=== PATIENT | male | born 1950 | race Caucasian/White ===

== ENCOUNTER 2019-05-06 13:28 | Emergency (ER) | payer MEDICARE, OTHER ==
[2019-05-06] MEDS ORDERED: Acetaminophen 500 MG TAB ONE (13:45)
--- NOTE | 2019-05-06 14:00 | RAD ---
LEFT FOOT 3 VIEWS: D ate: 05/06/19 HISTORY: Fall. Left foot pain. FINDINGS/IMPRESSION: No acute fracture or dislocation seen. Posterior and plantar calcaneal spurs are present. POS: [facility]
== END 2019-05-06 14:06 | disposition home or self-care (01) ==
LOC: MADERS 13:28
DX: S90.32XA Contusion of left foot, initial encounter (principal); E11.9 Type 2 diabetes mellitus without complications; E78.5 Hyperlipidemia, unspecified; E78.2 Mixed hyperlipidemia; I10 Essential (primary) hypertension; J45.909 Unspecified asthma, uncomplicated; F17.210 Nicotine dependence, cigarettes, uncomplicated; M10.9 Gout, unspecified; Z79.899 Other long term (current) drug therapy; W22.8XXA Striking against or struck by other objects, initial encounter
CPT/HCPCS: 99406

== ENCOUNTER 2019-12-10 08:42 | Outpatient (CLI) | payer MEDICARE, OTHER ==
[2019-12-10 09:24] LABS: ALT (SGPT) 24 U/L (8-55); AST (SGOT) 16 U/L (5-34); Albumin 4.3 g/dL (3.4-4.8); Alkaline Phosphatase 81 U/L (40-110); Anion Gap 15 mmol/L (10-20); BUN (Urea Nitrogen) 16 mg/dL (8.4-25.7); Bilirubin, Total 0.6 mg/dL (0.2-1.2); Calc. Creatinine Clearance 0 mL/min (70-130); Calcium 9.6 mg/dL (7.8-10.44); Carbon Dioxide 23 mmol/L (23-31); Cardiac Risk 4.3 (Less than 4.5); Chloride 106 mmol/L (98-107); Cholesterol 117 mg/dl (< 200 Desired); Estimated GFR-MDRD 64; Globulin 2.6 g/dL (2.4-3.5); Glucose 151 mg/dL (80-115); HDL Cholesterol 27 mg/dL (>60 Neg Risk); LDL Cholesterol, Calculated 59 mg/dL; Protein, Total 6.9 g/dL (5.8-8.1); Sodium 140 mmol/L (136-145); Triglycerides 155 mg/dL (Less than 150)
--- NOTE | 2019-12-10 09:43 | RAD ---
EXAM: XR Lumbar Spine Comp W Bending PROVIDED CLINICAL HISTORY: Lumbar radiculopathy COMPARISON: None FINDINGS: There are 5 nonrib-bearing lumbar-type vertebral bodies. Multilevel osteophytes are seen. There is mi ld narrowing of the L4-5 and L5-S1 intervertebral disc spaces. The vertebral body heights and remaining intervertebral disc spaces are within normal limits. No fracture or subluxation is seen. Vascular calcifications are seen in the abdominal aorta and involving the iliac arteries. Surgical clips overlie the right upper quadrant. IMPRESSION: Multilevel degenerative changes of the lumbar spine without evidence for fracture or subluxation.
--- NOTE | 2019-12-10 09:58 | RAD ---
SINGLE VIEW CHEST AND RIGHT RIB SERIES: Date: 12/10/2019 COMPARISON: None. HISTORY: Right flank and chest pain. FINDINGS: Single view of the chest and multiple views of the right ribs shows a normal sized cardiomediastinal silhouette. There is no evidence of consolidation, mass, or pleural effusion. No displaced right rib fracture is seen. No underlying pleural thickening or pneumothorax seen. Degenerative changes are see n in the spine. IMPRESSION: No evidence of acute abnormality. POS: [facility]
[2019-12-10 13:02] LABS: Creatinine, Urine 49.34 mg/dL (63-166); Microalbumin Urine 1.6 mg/dL (0.5-50.0); Microalbumin/Creat Ratio 32.4 mg/g (Less than 30)
[2019-12-11 11:43] LABS: SARS-CoV-2 IgG Index 0.01 S/CO (< 1.40)
[2019-12-11 13:08] LABS: SARS-CoV-2 IgG Ab Non-Reactive (NonReactive)
== END 2019-12-10 08:43 | disposition home or self-care (01) ==
LOC: MADRAD 08:42
PROVIDERS: ATTEND Family Medicine
DX: M47.26 Other spondylosis with radiculopathy, lumbar region (principal); R10.9 Unspecified abdominal pain; Z01.84 Encounter for antibody response examination; Z12.5 Encounter for screening for malignant neoplasm of prostate; B34.9 Viral infection, unspecified; E11.9 Type 2 diabetes mellitus without complications
CPT/HCPCS: 36415; 72100; 80053; 80061; 82043; 83036; 84153; 86769

== ENCOUNTER 2024-05-20 08:43 | Outpatient (CLI) | payer OTHER | END 2024-05-20 08:44 | disposition home or self-care (01) | LOC: MADCT 08:43 | DX: N23 Unspecified renal colic (principal); M51.34 Other intervertebral disc degeneration, thoracic region; N26.1 Atrophy of kidney (terminal); Z98.1 Arthrodesis status | CPT/HCPCS: 72128; 74176 ==